=== PATIENT | female | born 1950 | race Caucasian/White ===

== ENCOUNTER → 2018-08-12 | Outpatient (CLI) | payer MEDICARE, OTHER ==
[~2018-08-12] MED LIST: ACTONEL30 MG PO; CALCIUM + VIT1 EACH PO; CLONAZEPAM 1 MG1 M1 PO; EXCEDRIN SINUS1 EAC2 PO; FEMARA2.5 MG PO; IBUPROFEN 200200 M1 PO; MULTIVITAMINS PO; NITROFURAN25 MG/5 ML PO; REMERON30 MG PO; SYNTHROID25 MCG PO; VITAMIN D400 UNI1 PO; ZOLOFT100 MG PO
== END ==
LOC: M.MRI 09:41
PROVIDERS: Psychiatry & Neurology Neuromuscular Medicine
DX: G31.1 Senile degeneration of brain, not elsewhere classified (principal); I67.82 Cerebral ischemia; H53.2 Diplopia; Z88.1 Allergy status to other antibiotic agents; Z85.3 Personal history of malignant neoplasm of breast

== ENCOUNTER → 2018-11-15 | Outpatient (CLI) | payer MEDICARE, OTHER ==
--- NOTE | 2018-11-15 16:31 | 2DMMODE ---
[place] [address] 2 D/M-MODE ECHOCARDIOGRAM Name: BENJAMÍN MELVIN Room: [facility]#: [id number] Admission: 11/15/18 Attend Phys: Baltazar Huynh, Discharge: Date of : 48 Date of Service: 11/15/18 1631 Report #: [id number] THIS REPORT FOR: //name// APPROVED REPORT Study performed: 11/15/2018 13:01:31 EXAM: Comprehensive 2D, Doppler, and color-flow Echocardiogram Patient Location: Out-Patient BSA: 1.76 HR: 70 bpm BP: 110/70 mmHg Other Information Study Quality: Technically Difficult Technically limited study due to breast augmentation. Indications CVA/TIA Echo Enhancing Agent Indication: Rule out Shunt Agent(s) / Amount(s) Used: Agitated Saline cc 2D Dimensions IVSd: 9.30 (7-11mm) LVOT Diam: 19.30 (18-24mm) LVDd: 43.34 mm PWd: 10.13 (7-11mm) Ascending Ao: 28.56 (22-36mm) LVDs: 24.93 (25-40mm) Aortic Root: 25.46 mm Volumes Left Atrial Volume (Systole) LA ESV Index: 17.90 mL/m2 Aortic Valve AoV Peak Quinn.: 1.30 m/s AO Peak Gr.: 6.76 mmHg LVOT Max P.98 mmHg AO Mean Gr.: 3.54 mmHg LVOT Mean P.11 mmHg LVOT Max V: 1.00 m/s AO V2 VTI: 29.71 cm LVOT Mean V: 0.67 m/s SABAS (VTI): 2.32 cm2 LVOT V1 VTI: 23.57 [place] [address] 2 D/M-MODE ECHOCARDIOGRAM Name: BENJAMÍN MELVIN Room: [facility]#: [id number] Admission: 11/15/18 Attend Phys: Baltazar Huynh, Discharge: Date of : 48 Date of Service: 11/15/18 1631 Report #: [id number] Mitral Valve E/A Ratio: 1.57 MV Decel. Time: 161.61 ms MV E Max Qiunn.: 0.85 m/s MV PHT: 46.87 ms MVA (PHT): 4.69 cm2 TDI E/Lateral E': 8.50 E/Medial E': 8.50 Medial E' Quinn.: 0.10 m/s Lateral E' Quinn.: 0.10 m/s Pulmonary Valve PV Peak Quinn.: 0.71 m/s PV Peak Gr.: 2.01 mmHg Tricuspid Valve RAP Estimate: 5.00 mmHg TR Peak Gr.: 18.66 mmHg RVSP: 23.66 mmHg PA Pressure: 23.66 mmHg Left Ventricle The left ventricle is normal size. There is normal LV segmental wall motion. There is normal left ventricular wall thickness. Left ventricular systolic function is normal. LVEF is 60-65%. The left ventricular diastolic function is normal. Right Ventricle The right ventricle is normal size. The right ventricular systolic function is normal. Atria The left atrium size is normal. Injection of bubbles documented no interatrial shunt. The right atrium size is normal. Aortic Valve The aortic valve is normal in structure. No aortic regurgitation is present. There is no aortic valvular stenosis. Mitral Valve The mitral valve is normal in structure. Trace mitral regurgitation. No evidence of mitral valve stenosis. Tricuspid Valve The tricuspid valve is normal in structure. Trace tricuspid regurgitation. [place] [address] 2 D/M-MODE ECHOCARDIOGRAM Name: MELVINBENJAMÍN Room: [facility]#: [id number] Admission: 11/15/18 Attend Phys: Blatazar Huynh, Discharge: Date of : 48 Date of Service: 11/15/18 1631 Report #: [id number] Pulmonic Valve The pulmonary valve is normal in structure. There is no pulmonic valvular regurgitation. Great Vessels The aortic root is normal in size. IVC is normal in size and collapses >50% with inspiration. Pericardium There is no pericardial effusion. <Conclusion> The left ventricle is normal size. Left ventricular systolic function is normal. LVEF is 60-65%. The left ventricular diastolic function is normal. Injection of bubbles documented no interatrial shunt. Trace mitral regurgitation. Trace tricuspid regurgitation. No pulmonary hypertension. IVC is normal in size and collapses >50% with inspiration. <ELECTRONICALLY SIGNED> By: Ernesto Feng MD, FACC 11/15/18 1631 [id number] Ernesto Feng MD, FACC /INF
== END ==
LOC: M.MRI 09-27 10:08 → M.CRD 12:49 → M.MRI 13:30
DX: I63.9 Cerebral infarction, unspecified (principal); G45.9 Transient cerebral ischemic attack, unspecified; H53.2 Diplopia; R41.3 Other amnesia

== ENCOUNTER → 2020-10-18 | Outpatient (CLI) | payer MEDICARE, OTHER ==
[2020-10-18 15:32] LABS: ALBUMIN 4.5 g/dL (3.4-5.0); CALCIUM 9.4 mg/dL (8.5-10.1); CREATININE 1.1 mg/dL (0.6-1.3); POTASSIUM 4.5 mmol/L (3.5-5.1); TOTAL BILIRUBIN 0.2 mg/dL (<0.1-1.0); TOTAL PROTEIN 7.5 g/dL (6.4-8.2)
== END ==
LOC: M.CT 14:12 → M.LAB 14:54 → M.CT 16:00
PROVIDERS: ATTEND Psychiatry & Neurology Neuromuscular Medicine
DX: I65.09 Occlusion and stenosis of unspecified vertebral artery (principal); G45.9 Transient cerebral ischemic attack, unspecified; I63.9 Cerebral infarction, unspecified; I77.3 Arterial fibromuscular dysplasia